=== PATIENT | female | born 1990 | race African-American/Black ===

== ENCOUNTER 2017-02-14 18:29 | Emergency (ER) | payer MEDICAID, OTHER ==
[~2017-02-14 18:29] MED LIST: HYDR-3533 PO
[2017-02-14 19:55] LABS: BACTERIA, URINE MOD /hpf; BLOOD, URINE LARGE (NEG); COMMENT (UR) CULTURE INDICATED; CULTURE IF INDICATED CULTURE INDICATED; GLUCOSE,URINE NEG (NEG); KETONE, URINE NEG (NEG); MUCUS URINE FEW /lpf (OCC); NITRITE,URINE NEG (NEG); PH, URINE 6.5 (5.0-8.5); SQUAMOUS EPITHELIAL CELL URINE 12 /hpf (0-5); URINE COLOR YELLOW (YELLW/STRAW)
[2017-02-14] MEDS ORDERED: MACR100C2 PO (20:10)
--- NOTE | 2017-02-14 20:10 | PD ---
HPI Chief Complaint This patient is 26-year-old black female previous 3 who presents planning on low back pain and lower abdominal pain for several days. She has no care. She is had minimal spotting no leakage of fluid ., she believes that she is approximately 20 weeks no heart tones could be found on initial evaluation her ultrasound was done shows an empty uterus and a non uterus urine test is negative Date Seen: February 14, 2017 Travel History International Travel<30 Days: No Contact w/Intl Traveler<30Days: No Known Affected Area: No History of Present Illness HPI This patient is 26-year-old black female previous 3 who believed that she was approximately 20 weeks however urinalysis tonight is a negative test in the urinalysis also is positive for white cells or red cells and moderate bacteria large amount of blood I performed an ultrasound at bedside which showed essentially a empty uterus normal nongravid size. It urine test done tonight is negative Para: 3 : 8 History Obstetric History Obstetric History 3 C-sections multiple early losses Past Surgical History Narrative Surgical 3 C-sections Social History Alcohol Use: No Tobacco Use: No Substance Abuse: No Allergies-Medications (Allergen,Severity, Reaction): Coded Allergies: No Known Allergies (Verified , 09/04/15) Home Meds Active Scripts Hydrocodone/Acetaminophen 5 mg/325 mg (Lortab 5 mg/325 mg)1 Tab1 Tab PO Q6H PRN (PAIN) #20 TAB Prov:Luisito Mac MD 11/24/15 Review of Systems General / Constitutional: No: Fever, Weight Gain, Chills, Other Eyes: No: Diploplia, Blurred Vision, Visual changes, Pain, Photophobia HENT: No: Headaches, Vertigo, Lightheadedness Cardiovascular: No: Irregular Rhythm, Chest Pain or Discomfort, Palpitations, Tachycardia, Syncope, Varicosities, Edema, Cyanosis Respiratory: No: Cough, Short of Breath, Other Gastrointestinal: Abdominal Pain, No: Nausea, Vomiting, Diarrhea Genitourinary: No: Decreased Urinary Output, Oliguria Musculoskeletal: No: Limited ROM, Weakness, Cramping, Edema, Pain Skin: No Rash, No Itching, No Dryness, No Lumps, No Change in Pigmentation, No Change in Nails, No Alopecia, No Lesions Neurologic: No: Weakness, Dizziness, Syncope, Focal Abnormalities, Coordination Problem, Headache, Slurred Speech, Seizures Psychiatric: No: Depression, Suicidal Ideations, Homicidal Ideation Endocrine: No: Heat Intolerance, Cold Intolerance, Polydipsia, Polyuria, Other Physical Exam Narrative GENERAL: Well-nourished, obese patient. SKIN: Warm and dry. HEAD: Normocephalic and atraumatic. EYES: No scleral icterus. No injection or drainage. ENT: No nasal drainage noted. Mucous membranes pink. Airway patent. NECK: Supple, trachea midline. No JVD. CARDIOVASCULAR: Regular rate and rhythm without murmurs, gallops, or rubs. RESPIRATORY: Breath sounds equal bilaterally. No accessory muscle use. BREASTS: Bilateral exam showed no masses , no retractions, no nipple discharge. ABDOMEN/GI: Abdomen soft, 1-2+ tender, bowel sounds present, no rebound, no guarding Fundal Height: [-] Uterus is nongravid size on exam and ultrasound GENITOURINARY: External Genitalia: intact and normal in appearance BUS glands: [-] Cervix: [Closed-] Dilatation: [-Closed thick] Effacement: [-] Station: [-3] . No CVA tenderness. NEUROLOGICAL: Awake and alert. Motor and sensory grossly within normal limits. Five out of 5 muscle strength in all muscle groups. Normal speech. Data Data Orders Vital Signs (Adult) .ON ADMISSION (02/14/17 19:16) ^ Labor Status (02/14/17 19:16) Urinalysis - C+S If Indicated (02/14/17 19:16) Ed Urine Pregnancytest Poc (02/14/17 19:16) Urine Culture (02/14/17 18:45) Labs Urine test negative Laboratory Tests Test 02/14/17 18:45 Urine Color YELLOW Urine Turbidity HAZY Urine pH 6.5 Urine Specific [place] 1.026 Urine Protein 30 Urine Glucose (UA) NEG Urine Ketones NEG Urine Occult Blood LARGE Urine Nitrite NEG Urine Bilirubin NEG Urine Urobilinogen LESS THAN 2.0 Urine Leukocyte Esterase SMALL Urine RBC 47 Urine WBC 19 Urine Squamous Epithelial 12 Cells Urine Bacteria MOD Urine Mucus FEW Microscopic Urinalysis Comment CULTURE INDICATED Date/Time Procedure Status Source Growth 02/14/17 18:45 Urine Culture Received Urine Clean Catch Pending MDM Interpretation(s) The patient is 18-year-old black female previous 3 believe she was 5 months tonight test is negative, she doesn't does apparently have a UTI will treat with Macrobid by mouth ultrasound done by me at the bedside showed a nongravid uterus of normal size Plan Plan to discharge the patient on Macrobid inform her that her test is negative tonight for a follow-up with her local physician for further care Diagnosis Diagnosis: Primary Impression: UTI (urinary tract infection) Disposition: 01 DISCHARGE HOME Condition: Stable Scripts Nitrofurantoin Monohydrate Macrocrystals (Macrobid)100 Mg [id number] Mg PO BID #14 CAP Ref 0 Prov:Harman Ayala II, MD 02/14/17 Patient Instructions: General Instructions Departure Forms: Tests/Procedures Harman Ayala II, MD February 14, 2017 20:10
== END 2017-02-14 20:23 | disposition home or self-care (01) ==
LOC: HOBED 18:29
DX: N39.0 Urinary tract infection, site not specified (principal); R10.30 Lower abdominal pain, unspecified
CPT/HCPCS: 81001; 84703; 87086; 99284

== ENCOUNTER 2017-05-02 08:48 | Emergency (ER) | payer OTHER ==
[~2017-05-02] VITALS: Ht 162.6 cm; Wt 111.0 kg
[~2017-05-02 08:48] MED LIST changes: +MACR100C2 PO
[2017-05-02 08:51] VITALS: BP 104/58; PULSE 69; RESP 16; TEMP 98.1; O2SAT 98
--- NOTE | 2017-05-02 09:16 | PD ---
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 LMP 2 weeks prior. + Sexual intercourse lately without contraception. Pt denies hx STI. (4 miscarries). + Nausea and vomiting. No fever. No back pain. Pt denies similar prior events however a prior miscarry felt similar in quality though much less severe. Onset gradual. PFSH Past Medical History Hx Anticoagulant Therapy: No Arthritis: No Anxiety: Yes Cardiovascular Problems: No Chemotherapy: No Cerebrovascular Accident: No Diabetes: No Diminished Hearing: No Genitourinary: No Musculoskeletal: Yes (BACK PROBLEMS) Neurologic: No Reproductive: No Respiratory: No PNEUMOCCOCAL Vaccine (Year): 2 ?: Not LMP: 2 WEEKS AGO : 4 Para: 3 Miscarriage: 0 : 0 Past Surgical History Cardiac Surgery: No Section: Yes (x3) Ear Surgery: No Endocrine Surgery: No Eye Surgery: No Genitourinary Surgery: No Gynecologic Surgery: Yes (C- SECTION) Hysterectomy: No Oral Surgery: No Other Surgery: Yes ( OCTOBER 14) Social History Alcohol Use: No Tobacco Use: No Substance Use: No Allergies-Medications (Allergen,Severity, Reaction): Coded Allergies: No Known Allergies (Verified , 09/04/15) Reported Meds & Prescriptions Reported Meds & Active Scripts Active Macrobid (Nitrofurantoin Monohydrate Macrocrystals) 100 Mg Capsule 100 Mg PO BID Lortab 5 mg/325 mg (Hydrocodone/Acetaminophen 5 mg/325 mg) 1 Tab 1 Tab PO Q6H PRN Review of Systems Except as stated in HPI: all other systems reviewed are Neg General / Constitutional: No: Fever Gastrointestinal: Positive: Nausea, Vomiting Physical Exam Narrative GENERAL: 26 yo F, WNWD, NAD, pleasant : Minimal brownish/red discharge. +CMT. No adnexal mass/tenderness. External genitalia unremarkable. SKIN: Warm and dry. HEAD: Atraumatic. Normocephalic. EYES: Pupils equal and round. No scleral icterus. No injection or drainage. ENT: No nasal bleeding or discharge. Mucous membranes pink and moist. NECK: Trachea midline. No JVD. CARDIOVASCULAR: Regular rate and rhythm. RESPIRATORY: No accessory muscle use. Clear to auscultation. Breath sounds equal bilaterally. GASTROINTESTINAL: Abdomen soft, non-tender, nondistended. Hepatic and splenic margins not palpable. MUSCULOSKELETAL: Extremities without clubbing, cyanosis, or edema. No obvious deformities. NEUROLOGICAL: Awake and alert. No obvious cranial nerve deficits. Motor grossly within normal limits. Five out of 5 muscle strength in the arms and legs. Normal speech. PSYCHIATRIC: Appropriate mood and affect; insight and judgment normal. Data Data Last Documented VS Vital Signs Date Time Temp Pulse Resp B/P Pulse Ox O2 Delivery O2 Flow Rate FiO2 05/02/17 08:51 98.1 69 16 104/58 98 Room Air VS reviewed Orders Gc And Chlamydia Pcr (05/02/17 09:07) Wet Prep Profile (05/02/17 09:07) Urinalysis - C+S If Indicated (05/02/17 09:07) Ed Urine Pregnancytest Poc (05/02/17 09:07) Azithromycin Powd Pack (Zithromax Powd P (05/02/17 09:45) Ceftriaxone Inj (Rocephin Inj) (05/02/17 09:45) Lidocaine 1% Inj (50 Ml) (Xylocaine 1% I (05/02/17 09:45) Labs Laboratory Tests Test 05/02/17 05/02/17 09:00 09:10 Urine Color YELLOW Urine Turbidity CLEAR Urine pH 7.0 Urine Specific [place] 1.023 Urine Protein NEG mg/dL Urine Glucose (UA) NEG mg/dL Urine Ketones NEG mg/dL Urine Occult Blood TRACE Urine Nitrite NEG Urine Bilirubin NEG Urine Leukocyte Esterase NEG Urine RBC 0-3 /hpf Urine WBC 0-2 /hpf Urine Squamous Epithelial 0-5 /hpf Cells Microscopic Urinalysis Comment CULT NOT INDICATED Clue Cells (Wet Prep) NONE SEEN Vaginal Trichomonas (Wet Prep) NONE SEEN Vaginal Yeast (Wet Prep) NONE SEEN MDM Medical Decision Making Medical Screen Exam Complete: Yes Emergency Medical Condition: Yes Medical Record Reviewed: Yes Differential Diagnosis IUP, UTI, ectopic , ov torsion, appendicitis, TOA, cervicitis, BV, Trichomoniasis, ov cyst, hernia, mittelschmerz, pain from menstruation Narrative Course The wet prep is negative 3 Urinalysis shows no UTI Plan of care urine is negative CMT on exam could be consistent with cervicitis. Rocephin and azithromycin given here. Return precautions discussed. Patient verbalized understanding. Diagnosis Primary Impression: Cervicitis Referrals: Lillian Kapoor MD as needed Additional Instructions: PLEASE RETURN TO THE ER IF YOU DEVELOP FEVER, CONTINUOUS VOMITING, SEVERE PAIN OR FOR ANY REASON YOU CONSIDER APPROPRIATE. Med/Other Pt SpecificInfo: No Change to Meds Disposition: 01 DISCHARGE HOME Condition: Stable Emilio Bright MD May 02, 2017 09:16 Emilio Bright MD May 02, 2017 09:16
[2017-05-02 09:22] LABS: BLOOD, URINE TRACE (NEG); GLUCOSE,URINE NEG (NEG); KETONE, URINE NEG (NEG); NITRITE,URINE NEG (NEG)
[2017-05-02 09:27] LABS: URINE COLOR YELLOW (YELLW/STRAW)
[2017-05-02 09:28] LABS: COMMENT (UR) CULT NOT INDICATED; CULTURE IF INDICATED CULT NOT INDICATED; RBC, URINE 0-3 /hpf (0-3); SQUAMOUS EPITHELIAL CELL URINE 0-5 /hpf (0-5); WBC, URINE 0-2 /hpf (0-5)
[2017-05-02] MEDS ORDERED: cefTRIAXone 250 MG VIAL IM ONE (09:45)
[2017-05-02] MEDS ORDERED: AZITHROMYCIN PWD FOR SUSP 1 GM PACKET PO ONE (09:45)
[2017-05-02] MEDS ORDERED: LIDOCAINE HCL 1% 50 ML VIAL IM ONE (09:45)
[2017-05-02 10:15] VITALS: BP 123/75; PULSE 70; RESP 16; O2SAT 100
[2017-05-02 16:02] LABS: CHLAMYDIA PCR NOT DETECTED (NOT DETECT); NEISSERIA PCR NOT DETECTED (NOT DETECT)
== END 2017-05-02 10:35 | disposition home or self-care (01) ==
LOC: PHED 08:48
DX: N72 Inflammatory disease of cervix uteri (principal)
CPT/HCPCS: 81001; 84703; 87210; 87491; 87591; 96372; 99284; J0696

== ENCOUNTER → 2017-09-07 | Outpatient (CLI) | payer OTHER, MEDICAID | LOC: HPND 09:37 | PROVIDERS: ATTEND Obstetrics & Gynecology | DX: O35.2XX0 Maternal care for (suspected) hereditary disease in fetus, not applicable or unspecified (principal); O09.292 Supervision of pregnancy with other poor reproductive or obstetric history, second trimester; O26.892 Other specified pregnancy related conditions, second trimester; E66.01 Morbid (severe) obesity due to excess calories; O34.219 Maternal care for unspecified type scar from previous cesarean delivery; O28.3 Abnormal ultrasonic finding on antenatal screening of mother; O35.1XX0 Maternal care for (suspected) chromosomal abnormality in fetus, not applicable or unspecified | CPT/HCPCS: 76811; 76817 ==

== ENCOUNTER → 2017-09-21 | Outpatient (CLI) | payer OTHER, MEDICAID | LOC: HPND 12:25 | PROVIDERS: ATTEND Obstetrics & Gynecology | DX: O35.1XX0 Maternal care for (suspected) chromosomal abnormality in fetus, not applicable or unspecified (principal) | CPT/HCPCS: 59000; 76815; 76946 ==

== ENCOUNTER 2018-01-12 16:20 | Emergency (ER) | payer OTHER, MEDICAID ==
[2018-01-12 16:21] VITALS: BP 122/61; PULSE 73; RESP 20; TEMP 98.3; O2SAT 99
[2018-01-12] MEDS ORDERED: ACETAMINOPHEN/HYDROcodone 325 MG/5 MG TAB PO ONE (16:45)
--- NOTE | 2018-01-12 16:48 | PD ---
HPI Chief Complaint: Abdominal Pain Time Seen by Provider: 16:40 Travel History International Travel<30 days: No Contact w/Intl Traveler<30days: No Traveled to known affect area: No History of Present Illness HPI The patient's 27 years old and complains of abdominal pain. She reports chronic abdominal pain since the beginning of November which was about 7 weeks ago. The pain has gotten much worse over the past 4 days. She notes last menstruation has been over the past 4 days and is normal aside from the pain. No abnormal discharge reported. The patient reports giving at the beginning of November and at that point suffering uterine abruption followed by ICU stay with major blood loss and emergency surgery. She denies any abnormal bleeding. No chest pain or shortness of breath. No fever. No nausea or vomiting. The patient reports returning to work about one week prior which was somewhat challenging. She also reports efficacy with Percocet and Motrin and she has since switched to Tylenol and [id number] ibuprofen. PFSH Past Medical History Hx Anticoagulant Therapy: No Arthritis: No Anxiety: Yes Cardiovascular Problems: No Chemotherapy: No Cerebrovascular Accident: No Diabetes: No Diminished Hearing: No Gastrointestinal Disorders: No Genitourinary: No Musculoskeletal: Yes (BACK PROBLEMS) Neurologic: No Reproductive: No Respiratory: No Influenza Vaccination: No PNEUMOCCOCAL Vaccine (Year): 2 ?: Not LMP: 01/09/18 : 7 Para: 3 Miscarriage: 4 : 0 Past Surgical History Cardiac Surgery: No Section: Yes (x3) Ear Surgery: No Endocrine Surgery: No Eye Surgery: No Genitourinary Surgery: No Gynecologic Surgery: Yes (C- SECTION) Hysterectomy: No Neurologic Surgery: No Oral Surgery: No Other Surgery: Yes (UTERINE ABRUPTION 11/17/17) Social History Alcohol Use: Yes (OCCAS) Tobacco Use: No Substance Use: No Allergies-Medications (Allergen,Severity, Reaction): Coded Allergies: No Known Allergies (Verified Allergy, Unknown, 01/12/18) latex (Verified Allergy, Unknown, 01/12/18) Reported Meds & Prescriptions Reported Meds & Active Scripts Active Tramadol (Tramadol HCl) 50 Mg Tab 100 Mg PO Q6H PRN Ibuprofen 800 Mg Tab 800 Mg PO Q8H PRN Review of Systems Except as stated in HPI: all other systems reviewed are Neg General / Constitutional: No: Fever Physical Exam Narrative GENERAL: 27-year-old female pleasant well-nourished well-developed Vital Signs Date Time Temp Pulse Resp B/P (MAP) Pulse Ox O2 Delivery O2 Flow Rate FiO2 01/12/18 16:21 98.3 73 20 122/61 (81) 99 SKIN: Warm and dry. HEAD: Atraumatic. Normocephalic. EYES: Pupils equal and round. No scleral icterus. No injection or drainage. ENT: No nasal bleeding or discharge. Mucous membranes pink and moist. NECK: Trachea midline. No JVD. CARDIOVASCULAR: Regular rate and rhythm. RESPIRATORY: No accessory muscle use. Clear to auscultation. Breath sounds equal bilaterally. GASTROINTESTINAL: Mild nonspecific generalized tenderness. MUSCULOSKELETAL: Extremities without clubbing, cyanosis, or edema. No obvious deformities. NEUROLOGICAL: Awake and alert. No obvious cranial nerve deficits. Motor grossly within normal limits. Five out of 5 muscle strength in the arms and legs. Normal speech. PSYCHIATRIC: Appropriate mood and affect; insight and judgment normal. Data Data Last Documented VS Vital Signs Date Time Temp Pulse Resp B/P (MAP) Pulse Ox O2 Delivery O2 Flow Rate FiO2 01/12/18 16:21 98.3 73 20 122/61 (81) 99 Orders Orders Basic Metabolic Panel (Bmp) (01/12/18 16:40) Urinalysis - C+S If Indicated (01/12/18 16:40) Acetamin-Hydrocod 325-5 Mg ([place] 5-325 (01/12/18 16:45) Ed Urine Pregnancytest Poc (01/12/18 16:40) Complete Blood Count With Diff (01/12/18 17:27) Labs Laboratory Tests Test 01/12/18 17:10 01/12/18 18:01 Urine Color YELLOW Urine Turbidity CLEAR Urine pH 6.0 Urine Specific [place] 1.015 Urine Protein NEG mg/dL Urine Glucose (UA) NEG mg/dL Urine Ketones NEG mg/dL Urine Occult Blood TRACE Urine Nitrite NEG Urine Bilirubin NEG Urine Urobilinogen 0.2 MG/DL Urine Leukocyte Esterase NEG Urine RBC 0-3 /hpf Urine WBC 3-5 /hpf Urine Squamous Epithelial Cells 0-5 /hpf Microscopic Urinalysis Comment CULT NOT INDICATED Blood Urea Nitrogen 7 MG/DL Creatinine 0.66 MG/DL Random Glucose 79 MG/DL Calcium Level 9.0 MG/DL Sodium Level 140 MEQ/L Potassium Level 3.9 MEQ/L Chloride Level 110 MEQ/L Carbon Dioxide Level 25.8 MEQ/L Anion Gap 4 MEQ/L Estimat Glomerular Filtration Rate 128 ML/MIN White Blood Count 5.1 TH/MM3 Red Blood Count 3.97 MIL/MM3 Hemoglobin 10.3 GM/DL Hematocrit 32.8 % Mean Corpuscular Volume 82.7 FL Mean Corpuscular Hemoglobin 26.0 PG Mean Corpuscular Hemoglobin Concent 31.4 % Red Cell Distribution Width 14.9 % Platelet Count 421 TH/MM3 Mean Platelet Volume 8.5 FL Neutrophils (%) (Auto) 59.5 % Lymphocytes (%) (Auto) 30.4 % Monocytes (%) (Auto) 7.1 % Eosinophils (%) (Auto) 2.1 % Basophils (%) (Auto) 0.9 % Neutrophils # (Auto) 3.0 TH/MM3 Lymphocytes # (Auto) 1.6 TH/MM3 Monocytes # (Auto) 0.4 TH/MM3 Eosinophils # (Auto) 0.1 TH/MM3 Basophils # (Auto) 0.0 TH/MM3 CBC Comment AUTO DIFF MDM Medical Decision Making Medical Screen Exam Complete: Yes Emergency Medical Condition: Yes Medical Record Reviewed: Yes Differential Diagnosis Constipation, Gastritis, Acute Cholecystitis, Biliary Colic, Pancreatitis, WHITING , Hepatitis, Bowel Obstruction, Cystitis, Mesenteric Ischemia, AAA, Appendicitis , Renal Stone/Hydronephrosis, GERD, perforated viscous Narrative Course Nurse's documentation and reviewed CBC & BMP Diagram 01/12/18 17:10 Calcium Level 9.0 01/12/18 18:01 Urinalysis shows no UTI Urine drug screen negative Given the fact the patient had pain for 4 days and then she's been here quite a few times previously for various pain related complaints including abdomen and pelvic pain and that her vital signs are normal and that her blood work is essentially unremarkable aside from a a very mild decrease in hemoglobin compared to 2 years prior is considered unlikely that she is suffering from significant intraperitoneal pathology. The exam is reassuring furthermore. The patient will follow up with Dr Hauser of obstetrics. Return precautions discussed. Reassessment at 1810 reveals patient resting comfortably. Certainly persistent painful uterine rupture is given a diagnostic consideration. Scripts as below. Diagnosis Primary Impression: Abdominal pain Qualified Codes: R10.9 - Unspecified abdominal pain Additional Impression: History of rupture of uterus Med/Other Pt SpecificInfo: Prescription(s) given Scripts Tramadol (Tramadol) 50 Mg Tab 100 MG PO Q6H Y for PAIN SCALE 6 TO 10, #15 TAB 0 Refills Prov: Emilio Bright MD 01/12/18 Ibuprofen (Ibuprofen) 800 Mg Tab 800 MG PO Q8H Y for PAIN SCALE 6 TO 10, #20 TAB 0 Refills Prov: Emilio Bright MD 01/12/18 Disposition: 01 DISCHARGE HOME Condition: Stable Emilio Bright MD Jan 12, 2018 16:48
[2018-01-12 17:27] LABS: BILIRUBIN, URINE NEG (NEG); BLOOD, URINE TRACE (NEG); GLUCOSE,URINE NEG (NEG); KETONE, URINE NEG (NEG); NITRITE,URINE NEG (NEG); URINE COLOR YELLOW (YELLW/STRAW); URINE LEUKOCYTE ESTERASE NEG (NEG)
[2018-01-12 17:41] LABS: RBC, URINE 0-3 /hpf (0-3); SQUAMOUS EPITHELIAL CELL URINE 0-5 /hpf (0-5)
[2018-01-12 17:59] LABS: BICARBONATE 25.8 MEQ/L (21.0-32.0)
[2018-01-12] MEDS ORDERED: TRAM50TA PO (17:59)
[2018-01-12] MEDS ORDERED: IBUP1TAB7 PO (17:59)
[2018-01-12 18:02] LABS: CREATININE 0.66 MG/DL (0.50-1.00)
[2018-01-12 18:04] LABS: BASOPHIL % 0.9 % (0.0-2.0); EOSINOPHIL # 0.1 TH/MM3 (0-0.4); EOSINOPHIL % 2.1 % (0.0-4.0); HEMATOCRIT 32.8 % (35.0-46.0); HEMOGLOBIN 10.3 GM/DL (11.6-15.3); LYMPH % 30.4 % (9.0-44.0); LYMPHOCYTE # 1.6 TH/MM3 (1.0-4.8); MEAN CELL VOLUME 82.7 FL (80.0-100.0); MEAN CORPUSCULAR HGB CONC 31.4 % (32.0-36.0); MEAN PLATELET VOLUME 8.5 FL (7.0-11.0); MONO % 7.1 % (0.0-8.0); MONOCYTE # 0.4 TH/MM3 (0-0.9); NEUT % 59.5 % (16.0-70.0); PLATELET COUNT 421 TH/MM3 (150-450); RED BLOOD COUNT 3.97 MIL/MM3 (4.00-5.30); RED CELL DISTRIBUTION WIDTH 14.9 % (11.6-17.2); WHITE BLOOD COUNT 5.1 TH/MM3 (4.0-11.0)
[2018-01-12 18:36] VITALS: BP 136/72
== END 2018-01-12 18:37 | disposition home or self-care (01) ==
LOC: PHED 16:20
DX: R10.9 Unspecified abdominal pain (principal); R10.2 Pelvic and perineal pain; F41.9 Anxiety disorder, unspecified
CPT/HCPCS: 80048; 81001; 84703; 85025; 99283